=== PATIENT | female | born 2000 | race Caucasian/White ===

== ENCOUNTER 2022-06-08 14:46 | Observation (INO) | payer OTHER ==
[~2022-06-08] VITALS: Ht 165.1 cm; Wt 88.9 kg
[2022-06-08] MEDS ORDERED: OMEP20ER PO (16:45)
[2022-06-08 16:50] LABS: BASOPHILS ABSOLUTE AUTO 0.05 K/mm3 (0.00-0.23); BASOPHILS PERCENT AUTO 0 % (0-2); EOSINOPHILS PERCENT AUTO 0 % (0-6); Hemoglobin 14.6 g/dL (11.5-16.0); IMMATURE GRAN ABSOLUTE AUTO 0.14 K/mm3 (0.00-0.10); IMMATURE GRAN PERCENT AUTO 1 % (0-1); LYMPHOCYTES ABSOLUTE AUTO 1.32 K/mm3 (0.84-5.20); LYMPHOCYTES PERCENT AUTO 11 % (21-46); MONOCYTES ABSOLUTE AUTO 0.77 K/mm3 (0.16-1.47); MONOCYTES PERCENT AUTO 6 % (4-13); Mean Corpuscular HGB 30.2 pg (26.0-34.0); Mean Corpuscular Volume 89 fL (80-100); Mean Platelet Volume 9.8 fL (9.1-12.4); NEUTROPHILS ABSOLUTE AUTO 9.98 K/mm3 (1.96-9.15); NEUTROPHILS PERCENT AUTO 81 % (41-73); Platelet Count 301 K/mm3 (150-400); RDW Coefficient Variation 12.4 % (11.7-14.2); RDW Standard Deviation 40.8 fL (35.1-46.3); Red Blood Cell Count 4.84 M/mm3 (3.80-5.20); White Blood Cell Count 12.26 K/mm3 (4.00-11.30)
[2022-06-08 16:53] LABS: Albumin, Blood 3.9 g/dL (3.4-5.0); Albumin/Globulin Ratio 0.9 (0.8-1.8); Bilirubin, Total 0.4 mg/dL (0.1-1.0); Bun/Creatinine Ratio 14.1 (12.0-20.0); Calcium, Blood 9.2 mg/dL (8.5-10.1); Creatinine, Blood 0.5 mg/dL (0.40-1.00); Globulin, Blood 4.5 g/dL (2.2-4.0); Potassium, Blood 4.1 mmol/L (3.5-5.5); Total Protein, Blood 8.4 g/dL (6.4-8.2)
--- NOTE | 2022-06-08 22:05 | NUR ---
ADMIT NOTE 21 YR OLD FEMALE ADMITTED TO FLOOR FROM THE ED WITH DX OF COLITIS. MOTHER ACCOMPANIED PT FOR PTS COMFORT. ALERT AND ORIENTED, BUT APPEARS SHY, QUIETLY ANSWERS QUESTIONS. REQUESTED AND RECEIVED XANAX FOR ANXIETY. ON CLEAR LIQUIDS. ORIENTED TO USE OF CALL LIGHT. CALL LIGHT IN REACH. HAT IN TOILET FOR UA. ED RN REPORTED POSSIBLE NPO AT 2400 FOR SCOPE IN SOLO AM. NO NOTED SAID ORDERS, PT MADE AWARE OF POSSIBLE NPO AND SCOPE IN SOLO AM. IVF OF LR INFUSING AT 100 ML/HR. CALL LIGHT IN REACH
[2022-06-09 05:16] LABS: Source, Urine Voided
[2022-06-09 05:21] LABS: BASOPHILS ABSOLUTE AUTO 0.03 K/mm3 (0.00-0.23); BASOPHILS PERCENT AUTO 0 % (0-2); EOSINOPHILS ABSOLUTE AUTO 0.08 K/mm3 (0.00-0.68); EOSINOPHILS PERCENT AUTO 1 % (0-6); Hematocrit 37.8 % (33.0-51.0); Hemoglobin 12.9 g/dL (11.5-16.0); IMMATURE GRAN ABSOLUTE AUTO 0.02 K/mm3 (0.00-0.10); IMMATURE GRAN PERCENT AUTO 0 % (0-1); LYMPHOCYTES ABSOLUTE AUTO 1.77 K/mm3 (0.84-5.20); LYMPHOCYTES PERCENT AUTO 21 % (21-46); MONOCYTES ABSOLUTE AUTO 0.97 K/mm3 (0.16-1.47); MONOCYTES PERCENT AUTO 11 % (4-13); Mean Corpuscular HGB 30.1 pg (26.0-34.0); Mean Corpuscular HGB Conc 34.1 g/dL (31.5-36.5); Mean Corpuscular Volume 88 fL (80-100); Mean Platelet Volume 9.7 fL (9.1-12.4); NEUTROPHILS ABSOLUTE AUTO 5.64 K/mm3 (1.96-9.15); NEUTROPHILS PERCENT AUTO 66 % (41-73); Platelet Count 315 K/mm3 (150-400); RDW Coefficient Variation 12.5 % (11.7-14.2); RDW Standard Deviation 40.1 fL (35.1-46.3); Red Blood Cell Count 4.28 M/mm3 (3.80-5.20); White Blood Cell Count 8.51 K/mm3 (4.00-11.30)
[2022-06-09 05:34] LABS: Appearance, Urine Clear (Clear); Bilirubin, Urine Neg (Neg); Blood, Urine 1+ (Neg); Color, Urine Yellow (P-Yellow); Glucose Qualitative, Urine Neg (Neg); Ketones, Urine 2+ (Neg); Leukocyte Esterase, Urine Neg (Neg); Nitrite, Urine Neg (Neg); Protein, Urine Neg (Neg); Urobilinogen, Urine NORM (Normal)
[2022-06-09 05:49] LABS: Bacteria Rare /hpf; Red Blood Cells, Urine 0-2 /hpf (0-2); Squamous Epithelial Cells Rare /hpf (Few); White Blood Cells, Urine 0-2 /hpf (0-5)
[2022-06-09 05:50] LABS: Bun/Creatinine Ratio 9.9 (12.0-20.0); Calcium, Blood 8.5 mg/dL (8.5-10.1); Creatinine, Blood 0.5 mg/dL (0.40-1.00); Potassium, Blood 3.5 mmol/L (3.5-5.5)
[2022-06-09 05:57] LABS: Influenza A, PCR NEGATIVE (NEGATIVE); Influenza B, PCR NEGATIVE (NEGATIVE); Resp Syncytial Virus, PCR NEGATIVE (NEGATIVE); SARS-Cov-2 (COVID-19) PCR, MMC NEGATIVE (NEGATIVE)
--- NOTE | 2022-06-09 06:07 | NUR ---
STEP DOWN SPECIALIST SUMMARY HAS BEEN RESTING QUIETLY WITH FEW INTERRUPTIONS WITH MOTHER AT BEDSIDE FOR SUPPORT. IVF OF LR INFUSED. STARTED ON BOWEL PREP GOLYTELY. SCHEDULED FOR SCOPE LATER. UA AND COVID SWAB SENT TO LAB FOR PROCESSING. VSS. CALL LIGHT IN REACH. NO S/S ACUTE DISTRESS.
--- NOTE | 2022-06-09 15:58 | NUR ---
Spiritual Care Nurse request. Pt. was displaying evidence of anxiety and uncontrollable agitation when Pts. Mother welcomed me in to the room. Pt. could not verbalize her fears. Through a process of theraputic listening Pt. began to slowly relax and was eventually able to verbalize her fears. Established rapport with Pt. and Mother. After an extended period, Pt. displayed evidence of reduced anxiety and trust. While the pt. was not interested in prayer, the Pt. and mother verbalized gratitude for the spiritual care visit. This residential support worker will plan to check on Pt. before he clocks out.
--- NOTE | 2022-06-09 17:00 | NUR ---
SHIFT SUMMARY PATIENT ALERT AND ORIENTED THROUGHOUT SHIFT. INDEPENDENT IN ROOM. NPO EXCEPT FOR BOWEL PREP DRINK. ANXIOUS AT TIMES, SEEN BY SPIRITUAL CARE AND MEDICATED PRN PER EMAR. WENT FOR COLONOSCOPY WITH POSSIBLE BIOPSY WITH DR GARCIA AT 1700. FAMILY ATTENTIVE AT BEDSIDE THROUGHOUT SHIFT.
--- NOTE | 2022-06-09 17:28 | NUR ---
06/09/22 1728 Feliz Abebe HISTORY, CHART, MEDICATIONS AND ALLERGIES REVIEWED BEFORE START OF PROCEDURE. PATIENT CONFIRMS NPO STATUS AND AGREES WITH SCHEDULED PROCEDURE. 3-LEAD EKG REVIEWED WITH PHYSICIAN PRIOR TO START OF PROCEDURE. MONITOR INTACT WITH CONTINUOUS PULSE OXIMETRY,CAPNOGRAPHY, 3-LEAD EKG, INTERMITTENT BP. SUPPLEMENTAL O2 TO BE TITRATED THROUGHOUT PROCEDURE TO MAINTAIN O2 SATURATION ABOVE 90%. PATIENT DETERMINED TO BE ASA APPROPRIATE FOR PROPOFOL SEDATION PRIOR TO START OF PROCEDURE BY DR. GARCIA.
--- NOTE | 2022-06-09 18:48 | NUR ---
Followed up with Pt. after procedure. Pt. displayed evidence of vannessa and peace. Both Pt. and Pts. mother verbalized gratitude for the spiritual care visit.
--- NOTE | 2022-06-10 03:22 | NUR ---
[facility] [employer] [address] SUMMARY RESTING QUIETLY WITH FEW INTERRUPTIONS SINCE HS. AWAKE AND ASKED FOR TYLENOL FOR DISCOMFORT, BUT STATED NO PROBLEMS AT THE TIME WITH HER ANXIETY. MOTHER AT BEDSIDE. NO NOTED SIGNS OF ACUTE DISTRESS. TOLERATING DIET AND FLUIDS WELL. VSS. CALL LIGHT IN REACH.
--- NOTE | 2022-06-10 13:18 | NUR ---
SHIFT SUMMARY- PT SLEEPING MOST OF SHIFT (am.) PT WITH MOTHER AT BEDSIDE. APPETITE OK. PT HAD BM IN AM. VSS. D/C @1300. EDUCATED PT ON CURRENT D/C INSTRUCTIONS. PT WHEEL CHAIRED DOWN TO AUTOMOBILE WITH ALL BELONGINGS AND PAPERWORK IN HAND.
== END 2022-06-10 13:14 | disposition home or self-care (01) ==
LOC: ER 14:46 → MEDS 14:47
PROVIDERS: Internal Medicine Gastroenterology; Physician Assistant; ADMIT Internal Medicine
PROC: 0DBB8ZX Excision of Ileum, Via Natural or Artificial Opening Endoscopic, Diagnostic (ICD-10-PCS; principal; 2022-06-09 14:30)
PROC: 0DBE8ZX Excision of Large Intestine, Via Natural or Artificial Opening Endoscopic, Diagnostic (ICD-10-PCS; principal; 2022-06-09 14:30)
DX: K52.9 Noninfective gastroenteritis and colitis, unspecified (principal); J45.909 Unspecified asthma, uncomplicated; F41.9 Anxiety disorder, unspecified; Z20.822 Contact with and (suspected) exposure to COVID-19
CPT/HCPCS: 0241U; 36415; 80048; 80053; 81001; 81025; 83690; 85025; 88305; 96374; 96376; 99284; A9270; G0378; J2250; J2405; J2704; J7120

== ENCOUNTER → 2023-07-05 | Outpatient (CLI) | payer OTHER ==
[~2023-07-05] MED LIST: OMEP20ER PO
== END ==
LOC: LAB SHORT 15:15
DX: R10.9 Unspecified abdominal pain (principal)
CPT/HCPCS: 87086